=== PATIENT | female | born 1965 | race African-American/Black ===

== ENCOUNTER 2022-12-29 12:23 | Emergency (ER) | payer MEDICAID, OTHER ==
[~2022-12-29] VITALS: Ht 157.5 cm; Wt 101.0 kg
[2022-12-29 12:25] VITALS: BP 133/90; PULSE 98; RESP 20; TEMP 98; O2SAT 99
[2022-12-29] MEDS ORDERED: DICYCLOMINE 10 MG/5 ML ORAL SYR PO STA (13:27)
[2022-12-29] MEDS ORDERED: MAGNESIUM/ALUMINUM HYDROXIDE/SIMETHICONE 30ML UDC PO STA (13:27)
[2022-12-29 13:45] LABS: BASOPHILS % 0.3 % (0.0-2.0); EOSINOPHILS % 1.4 % (0.0-5.0); HEMATOCRIT. 40.1 % (36.0-48.0); HEMOGLOBIN. 13.1 g/dL (12.0-16.0); LYMPHOCYTES % 27.3 % (20.0-50.0); MEAN CORPUSCULAR HEMOGLOBIN 26.7 pg (28.0-32.0); MEAN CORPUSCULAR HGB CONC 32.6 g/dL (31.0-37.0); MEAN CORPUSCULAR VOLUME 81.9 fL (81.0-99.0); MEAN PLATELET VOLUME 8.4 fl (7.4-10.4); MONOCYTES % 5.4 % (2.0-8.0); NEUTROPHILS % 65.6 % (40.0-76.0); PLATELET 270 x1000/uL (130-400); RED BLOOD CELL COUNT 4.89 mill/uL (4.2-5.4); RED CELL DISTRIBUTION WIDTH 13.8 % (11.6-14.6); WHITE BLOOD COUNT 6.7 x1000/uL (4.5-11.0)
[2022-12-29 14:02] LABS: CHLORIDE 103 mEq/L (98-107); INDEX HEMOLYSI 1 (1-3); INDEX ICTERIC 1 (1-4); INDEX LIPEMIC 1 (1-3); POTASSIUM 3.8 mEq/L (3.5-5.1); SODIUM 136 mEq/L (136-145)
[2022-12-29 14:03] LABS: HCG SCREEN NEGATIVE
[2022-12-29 14:13] LABS: ALANINE AMINOTRANSFERASE 16 IU/L (13-61); ALBUMIN 3.6 g/dL (3.4-5.0); ASPARTATE AMINOTRANSFERASE 9 IU/L (15-37); BILIRUBIN TOTAL 0.7 mg/dL (0.1-1.0); CALCIUM 9.1 mg/dL (8.5-10.1); CARBON DIOXIDE 27 mEq/L (21-32); GLUCOSE 318 mg/dL (70-105); PROTEIN TOTAL 7.6 g/dL (6.0-8.3); UREA NITROGEN BLOOD 15 mg/dL (7-21)
[2022-12-29] MEDS ORDERED: LORAZEPAM 0.5MG TABLET PO ONE (16:00)
[2022-12-29 17:39] LABS: CLARITY URINE CLEAR (CLEAR); COLOR URINE YELLOW (YELLOW); GLUCOSE URINE 3+ (NEGATIVE); KETONES URINE NEGATIVE (NEGATIVE); LEUKOCYTE ESTERASE URINE NEGATIVE (NEGATIVE); NITRITE URINE NEGATIVE (NEGATIVE); OCCULT BLOOD URINE NEGATIVE (NEGATIVE); PH URINE 6.5 (4.5-8.0); PROTEIN URINE NEGATIVE (NEGATIVE); SPECIFIC GRAVITY URINE 1.026 (1.005-1.030); UROBILINOGEN URINE 0.2 E.U./dL (0.2-1.0)
[2022-12-29 18:07] LABS: BACTERIA URINE 1+; RBC URINE 0-2 /hpf (0-2); SQUAMOUS EPITHELIAL CELL URINE 1+ /lpf (RARE/1+); WBC URINE 0-2 /hpf (0-2)
[2022-12-29] MEDS ORDERED: TRAM50TA3 PO (18:54)
== END 2022-12-29 19:10 | disposition home or self-care (01) ==
LOC: ER 12:23
DX: N20.0 Calculus of kidney (principal); E11.9 Type 2 diabetes mellitus without complications; I10 Essential (primary) hypertension; Z98.890 Other specified postprocedural states
CPT/HCPCS: 36415; 74176; 80053; 81003; 81025; 84703; 85025; 99284

== ENCOUNTER 2023-10-03 07:51 | Emergency (ER) | payer MEDICAID ==
[~2023-10-03] VITALS: Ht 165.1 cm; Wt 100.0 kg
[~2023-10-03 07:51] MED LIST: TRAM50TA3 PO
[2023-10-03 07:55] VITALS: BP 151/79; PULSE 82; RESP 18; TEMP 98.2; O2SAT 100
[2023-10-03] MEDS: FLUORESCEIN SODIUM 1MG/STRIP LEFTEYE ONE (08:44)
[2023-10-03] MEDS: TETRACAINE 0.5% OPHTH DROPS 4ML LEFTEYE ONE (08:44)
[2023-10-03] MEDS ORDERED: OCUFLX LEFTEYE (09:04)
== END 2023-10-03 09:13 | disposition home or self-care (01) ==
LOC: ER 07:51
DX: S05.02XA Injury of conjunctiva and corneal abrasion without foreign body, left eye, initial encounter (principal); E11.22 Type 2 diabetes mellitus with diabetic chronic kidney disease; N18.9 Chronic kidney disease, unspecified; Z98.890 Other specified postprocedural states; X58.XXXA Exposure to other specified factors, initial encounter; Y93.89 Activity, other specified; Y92.89 Other specified places as the place of occurrence of the external cause; Y99.8 Other external cause status
CPT/HCPCS: 99283

== ENCOUNTER 2024-01-12 09:29 | Emergency (ER) | payer MEDICAID ==
[~2024-01-12] VITALS: Ht 157.5 cm; Wt 100.0 kg
[~2024-01-12 09:29] MED LIST changes: +OCUFLX LEFTEYE
[2024-01-12 09:33] VITALS: BP 200/93; PULSE 83; RESP 18; TEMP 98.4; O2SAT 100
[2024-01-12] MEDS ORDERED: METH-653 MT (10:02)
[2024-01-12] MEDS: ACETAMINOPHEN 325MG TABLET PO ONE (11:00)
== END 2024-01-12 11:00 | disposition home or self-care (01) ==
LOC: ER 09:38
DX: M54.6 Pain in thoracic spine (principal); E11.9 Type 2 diabetes mellitus without complications; I10 Essential (primary) hypertension; Z88.6 Allergy status to analgesic agent
CPT/HCPCS: 99283